=== PATIENT | female | born 1935 | race Caucasian/White ===

== ENCOUNTER 2017-01-11 13:30 | Outpatient (RCR) | payer MEDICARE, BC ==
[~2017-01-11 13:30] MED LIST: NO HOME MEDICATIONS
== END 2017-02-02 09:31 | disposition home or self-care (01) ==
LOC: WSOT 13:30
DX: S61.211D Laceration without foreign body of left index finger without damage to nail, subsequent encounter (principal); X58.XXXD Exposure to other specified factors, subsequent encounter; Y92.090 Kitchen in other non-institutional residence as the place of occurrence of the external cause
CPT/HCPCS: G8987-GO; G8988-GO; G8989-GO

== ENCOUNTER 2017-04-16 11:30 | Outpatient (RCR) | payer MEDICARE, BC | END 2017-05-13 | disposition still patient (30) | LOC: WSOT | DX: M65.88 Other synovitis and tenosynovitis, other site (principal) | CPT/HCPCS: G8987-GO; G8988-GO ==

== ENCOUNTER → 2017-06-12 | Outpatient (CLI) | payer MEDICARE, BC | LOC: COL.VAS 09:00 | DX: I26.99 Other pulmonary embolism without acute cor pulmonale (principal) ==

== ENCOUNTER → 2017-07-13 | Outpatient (CLI) | payer MEDICARE, BC ==
[2017-07-19 09:16] LABS: ALTERNARIA TENUIS IgE <0.05 IU/mL (<0.05); ALTERNARIA TENUIS IgE CLASS Negative (()); BERMUDA GRASS IGE CLASS Negative (()); BOX ELDER-MAPLE IgE <0.05 IU/mL (<0.05); BOX ELDER/MAPLE IgE CLASS Negative (()); CAT EPITHELIUM IGE CLASS Negative (()); CLASS INTERPRETATION GUIDE IU/mL (()); COCKROACH CLASS Negative (()); COTTONWOOD IGE CLASS Negative (()); DOG DANDER IGE CLASS Negative (()); DUST MITES IGE (D.F.) <0.05 IU/mL (<0.05); DUST MITES IGE (D.P.) <0.05 IU/mL (<0.05); DUST MITES IGE D.F. CLASS Negative (()); DUST MITES IGE D.P. CLASS Negative (()); FIREBUSH CLASS Negative (()); OAK IGE <0.05 IU/mL (<0.05); RED TOP IGE CLASS Negative (()); RED TOP IgE <0.05 IU/mL (<0.05); ROUGH MARSH ELDER IGE CLASS Negative (()); RUSSIAN THISTLE CLASS Negative (()); SHORT RAGWEED IGE CLASS Negative (())
== END ==
LOC: COL.LAB 11:10
PROVIDERS: Internal Medicine Pulmonary Disease
DX: R06.02 Shortness of breath (principal)